=== PATIENT | female | born 1985 | race Caucasian/White ===

== ENCOUNTER → 2017-03-26 | Outpatient (CLI) | payer BC ==
[2017-03-26 12:52] LABS: Glucose 84 mg/dL (74-99); Non-African American GFR(MDRD) >60 (>60 ml/min/1.73 sqM)
[2017-03-26 13:07] LABS: CH 31.2; CHCM 34.1; HDW 2.16; HGB 12.7 gm/dL (11.4-16.0); MCH 30.5 pg (25.0-35.0); MCHC 33.3 g/dL (31.0-37.0); MCV 91.7 fL (80.0-100.0); Mean Platelet Volume 6.7; RBC 4.15 m/uL (3.80-5.40); RDW 13.7 % (11.5-15.5); WBC 10.1 k/uL (3.8-10.6)
[2017-03-26 13:23] LABS: Hepatitis B Surface Ag Index 0.05
[2017-03-26 19:47] LABS: Treponemal Ab Non-Reactive (Non-Reactive)
== END | disposition home or self-care (01) ==
LOC: LABWHC1 12:03
PROVIDERS: ATTEND Obstetrics & Gynecology
DX: Z34.01 Encounter for supervision of normal first pregnancy, first trimester (principal); Z3A.00 Weeks of gestation of pregnancy not specified
CPT/HCPCS: 36415; 82565; 82947; 85027; 86762; 86780; 86850; 86900; 86901; 87340

== ENCOUNTER → 2017-05-24 | Outpatient (CLI) | payer BC ==
[2017-05-26 09:54] LABS: Alpha Fetoprotein 47.8 ng/mL; B-HCG (M.O.M.) 1.96; Gestational Age (days) 4; Human Chorionic Gonadotropin 53.1 IU/mL; Inhibin A (M.O.M.) 1.44; Interpretation SeeBelow; Maternal Age at EDD (Yrs) 30; Smoker No; Unconjugated Estriol (M.O.M.) 0.77
== END | disposition home or self-care (01) ==
LOC: LABWHC1 10:13
PROVIDERS: ATTEND Obstetrics & Gynecology
DX: Z34.02 Encounter for supervision of normal first pregnancy, second trimester (principal); Z3A.00 Weeks of gestation of pregnancy not specified
CPT/HCPCS: 36415; 82105; 82677; 84702; 86336

== ENCOUNTER 2017-10-25 07:05 | Inpatient (IN) | payer BC ==
[2017-10-25] MEDS ORDERED: OXYTOCIN 10 UNIT/ML 1 ML VIAL IM PRN (09:08)
[2017-10-25] MEDS ORDERED: LIDOCAINE 1% (PF) 10 MG/ML (30 ML SDV) SQ PRN (09:08)
[2017-10-25] MEDS ORDERED: CARBOPROST TROMETHAMINE 250 MCG/ML 1 ML AMP IM PRN (09:08)
[2017-10-25] MEDS ORDERED: METHYLERGONOVINE 0.2 MG/ML 1 ML AMP IM PRN (09:08)
[2017-10-25] MEDS ORDERED: TERBUTALINE 1 MG/ML VIAL SQ PRN (09:08)
[2017-10-25] MEDS ORDERED: OXYTOCIN 20 UNITS/1000 ML NS 1,000 ML IV SCH (09:15)
[2017-10-25 09:30] LABS: Basophils % (A) 0 %; Eosinophils # (A) 0.1 k/uL (0-0.7); Eosinophils % (A) 1 %; HGB 12.7 gm/dL (11.4-16.0); Lymphocytes # (A) 1.3 k/uL (1.0-4.8); Lymphocytes % (A) 17 %; MCH 30.5 pg (25.0-35.0); MCHC 34.4 g/dL (31.0-37.0); MCV 88.8 fL (80.0-100.0); Mean Platelet Volume 8.7; Monocytes # (A) 0.4 k/uL (0-1.0); Monocytes % (A) 5 %; Neutrophils # (A) 6.1 k/uL (1.3-7.7); Neutrophils % (A) 76 %; Platelet Count 141 k/uL (150-450); RBC 4.17 m/uL (3.80-5.40); RDW 13.6 % (11.5-15.5); WBC 8.1 k/uL (3.8-10.6)
[2017-10-25 09:31] VITALS: BMI 25.1
[2017-10-25] MEDS: LACTATED RINGERS 1,000 ML IV SCH ×3 (09:39→17:33)
[2017-10-25] MEDS ORDERED: BUTORPHANOL 1 MG/ML 1 ML VIAL IV PRN (16:49)
[2017-10-25] MEDS ORDERED: BUPIVACAINE (PF) 0.25% 30 ML VIAL ONE (17:16)
[2017-10-25] MEDS ORDERED: SODIUM CHLORIDE 0.9% 100 ML BAG ONE (17:16)
[2017-10-25] MEDS ORDERED: fentaNYL (PF) 50 MCG/ML 5 ML AMP ONE (17:16)
[2017-10-25] MEDS ORDERED: BUPIVACAINE (PF) 0.25% 25 ML, fentaNYL (PF) 200 MCG in SODIUM CHLORIDE 0.9% 71 ML EPIDURAL ONE (17:39)
[2017-10-26] MEDS ORDERED: SIMETHICONE 80 MG CHEWABLE PO PRN (01:13)
[2017-10-26] MEDS ORDERED: BENZOCAINE/MENTHOL SPRAY 1 GM/SPRAY AEROSOL TOPICAL PRN (01:13)
[2017-10-26] MEDS ORDERED: HYDROCORTISONE 2.5% RECTAL CREAM 30 GM TUBE RECTAL PRN (01:13)
[2017-10-26] MEDS ORDERED: ZOLPIDEM 5 MG TAB PO PRN (01:13)
[2017-10-26] MEDS ORDERED: diphenhydrAMINE 25 MG CAP PO PRN (01:13)
[2017-10-26] MEDS ORDERED: LANOLIN CREAM 5 GM TUBE TOPICAL PRN (01:13)
[2017-10-26] MEDS ORDERED: diphenhydrAMINE 50 MG CAP PO PRN (01:13)
[2017-10-26] MEDS ORDERED: diphenhydrAMINE 50 MG/ML 1 ML VIAL IVP PRN ×2 (01:13)
[2017-10-26] MEDS ORDERED: WITCH HAZEL 1 EACH MED..PAD TOPICAL PRN (01:13)
[2017-10-26] MEDS ORDERED: HYDROcodone/APAP 5-325MG 1 EACH TAB PO PRN ×2 (01:14)
--- NOTE | 2017-10-26 01:18 | P.HPOB ---
History of Present Illness H&P Date: 10/26/17 Chief Complaint: Intrauterine at 40 and 4: Active labor: Possible spontaneous rupt Patient is a 32-year-old who was a patient of infertility to help her get . Her course generally speaking was unremarkable although she did have one elevated blood pressure approximately 2 weeks ago labs and follow-up blood pressures have been normal. NSTs and last couple days have been reactive. This morning at approximately 5:00 she began having increase in pain and contractions was sent into labor and delivery where there was a possibility of spontaneous rupture membranes. She made minimal cervical change but as she was past her due date decision to keep her and allow her to labor with artificial rupture membranes was done with clear fluid noted at that time. heart tones in the 130s to 140s and were reactive. She is myra approximately every 6-8 minutes. Pitocin augmentation of labor was planned at that point. Pertinent labs did include A+ blood type Rh and it was negative, rubella immune, hepatitis B surface antigen and RPR as well as quad screening were negative. GBS was negative. Past Medical History Past Medical History: No Reported History History of Any Multi-Drug Resistant Organisms: None Reported Past Surgical History: Ablation Additional Past Surgical History / Comment(s): uterine ablation for endometriosis 07/2016 Past Anesthesia/Blood Transfusion Reactions: No Reported Reaction Past Psychological History: No Psychological Hx Reported Smoking Status: Never smoker Past Drug Use History: None Reported - Past Family History Mother Family Medical History: Hypertension Father Family Medical History: Hypertension Medications and Allergies Home Medications Medication Instructions Recorded Confirmed Type Pnv No.95/Ferrous Fum/Folic AC 1 tab PO DAILY 10/25/17 10/25/17 History [ Multivitamin Tablet] Allergies Allergy/AdvReac Type Severity Reaction Status Date / Time amoxicillin Allergy Rash/Hives Verified 10/25/17 07:23 Exam Osteopathic Statement: *. No significant issues noted on an osteopathic structural exam other than those noted in the History and Physical/Consult. - Vital Signs Vital signs: Vital Signs Temp Pulse Resp BP 10/25/17 09:21 97.9 F 68 16 137/85 10/25/17 08:52 97.9 F 79 16 127/86 Intake and Output 10/25/17 10/25/17 10/26/17 14:59 22:59 06:59 Intake Total 1000 45 Output Total 350 Balance 1000 -350 45 Intake: IV 1000 Lactated Ringers 1,000 ml 1000 @ 125 mls/hr IV .Q8H EZRA Rx#:[id number] Intake, IV Titration 45 Amount Oxytocin 20 Units/1000 ml 45 Ns 1,000 ml @ 1 MILLIUNIT/MIN 3 mls/hr IV .Q24H EZRA Rx#:[id number] Output: Urine 350 Other: Weight 60.328 kg - OBG Physical Exam Breast: both: normal (no masses) Abdomen: bowel sounds normal, no diffuse tenderness, no bruit present, no guarding noted, no hepatomegaly, no splenomegaly, no mass Vulva: both: normal Vagina: normal moisture, no discharge Cervix: no lesion, no discharge Uterus: normal size, normal contour Adnexa: both: normal Anus/Rectum: normal perianal skin, no rectal mass, no hemorrhoids, heme negative Results Result Diagrams: 10/25/17 09:18 Abnormal Lab Results - Last 24 Hours (Table) 10/25/17 Range/Units 09:18 Plt Count 141 L (150-450) k/uL
--- NOTE | 2017-10-26 01:25 | P.PROBDLV ---
Vaginal Delivery Note - . Vaginal Delivery Note: Patient progressed to complete and pushing with a vacuum-assisted vaginal delivery of a viable female over a third-degree perineal laceration. It is noted that during the process the patient pushed for almost 2-1/2 hours and had maternal exhaustion and with pushes over approximately the last half hour heart rate was decelerating from baseline of 155 down to 80s with rapid return to baseline. A discussion was held with the and patient including the involved risks and benefits of a vacuum-assisted delivery including lacerations of the scalp as well as subgaleal or subdural hematomas. The other discussion was if we were unable to do this and assist in the delivery the next step would be to move forward with the section. We did briefly discuss a section rather than a vacuum-assisted delivery as an alternative, but with the baby being essentially on the perineum when she pushed risks for likely both mother and baby were greatly increased with a move to a section trying to push the baby all the way back up into the uterus and out for a . Vacuum was applied and it was pumped up to approximately 45 mmHg. During the first 2 attempts at vacuum assisted delivery of this year old between the baby and the vacuum did not hold there was no pop off but it did release due to blood underneath the vacuum and therefore no real attempt could be made to assist in her delivery. We were able to on the third attempt get a good seal pump it again to 45 mmHg and with one assist were able to bring the head up and out of the vagina over a third-degree perineal laceration the vacuum was then released and nuchal cord 2 was noted. The nuchal cord 2 was very tight initially I tried to deliver the baby through the nuchal cord but I was unable to get the shoulders free from the nuchal cord due to how tight it was an attempt to deliver the nuchal cord over the baby's head was also attempted but also would not go all the way around therefore the umbilical cord was doubly clamped and cut. Baby was immediately delivered following this and mouth nares were bulb suctioned and baby was placed on mother 's abdomen where the umbilical cord was let rapidly clamped and cut and nursery personnel and special care nursery personnel as well as anesthesia were present for assuming care of the baby. It was noted during the latter process of labor that she might have meconium and there was very thick meconium noted at the time of delivery but only a scant amount had been seen prior to that. scores and weight are both pending at this time. Placenta was then delivered intact and Pitocin was added to the IV. Inspection of perineum revealed a third -degree laceration inspection of the rectum revealed no capsular involvement. The deep layer of the laceration was repaired with 3-0 Vicryl in interrupted fashion with 3 interrupted stick sutures. Good anal weight was noted bilaterally. During the repair process there was uterine atony noted and the patient had some hemorrhage was a loss of approximately 802,000 mL of blood. Methergine was immediately ordered and provided and resolution of the atony was rapidly effected. The remaining repair of the laceration was done in usual fashion as an episiotomy and one interrupted suture was placed just above the rectum to bring the skin together in that area. Another rectal exam was performed with good integrity noted over the rectum.
[2017-10-26] MEDS: IBUPROFEN 600 MG TAB PO PRN ×4 (01:41→20:09)
[2017-10-26] MEDS: ACETAMINOPHEN TAB 325 MG TAB PO PRN ×2 (02:41→11:08)
[2017-10-26] MEDS: SENNOSIDES-DOCUSATE SODIUM 1 EACH TAB PO SCH ×2 (07:33→20:08)
--- NOTE | 2017-10-26 10:19 | P.PNOBGVD ---
Subjective - Subjective Principal diagnosis: day 0 Interval history: Overall cierra erwin appears to be doing well. She feels better this morning she did last night. Her vital signs are stable and she is afebrile. A CBC is pending. She does report she did have some tingling in her fingers and was little lightheaded getting up and down last night following the delivery, she did have hemorrhage so I'm interested to see what her CBC returns this morning. She is able to get down now and overall does look good. Heart regular, lungs clear, extremities without pain. 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 Assessment day 0. Plan continue current care Patient reports: Reports appetite normal, Reports voiding normally, Reports pain well controlled, Reports ambulating normally [place]: in NICU Objective - Latest Vital Signs Latest vital signs: Vital Signs Temp Pulse Resp BP 10/26/17 07:53 97.6 F 70 16 119/71 10/26/17 04:00 97.6 F 68 16 140/88 10/26/17 03:06 98.1 F 68 16 127/72 10/26/17 02:36 74 16 118/70 10/26/17 02:06 69 16 117/55 10/26/17 01:51 75 16 120/65 10/26/17 01:36 76 16 124/74 10/26/17 01:21 71 16 119/74 10/26/17 00:52 97.0 F L 103 H 16 116/60 Intake and Output 10/25/17 10/26/17 10/26/17 22:59 06:59 14:59 Intake Total 45 Output Total 350 Balance -350 45 Intake: Intake, IV Titration 45 Amount Oxytocin 20 Units/1000 ml 45 Ns 1,000 ml @ 1 MILLIUNIT/MIN 3 mls/hr IV .Q24H EZRA Rx#:[id number] Output: Urine 350 Other: # Voids 1 - Exam Lungs: bilateral: normal Chest: Normal S1, Normal S2 Extremities: Present: normal Abdomen: Present: normal appearance, soft Uterus: Present: normal, firm
[2017-10-26 10:53] LABS: Basophils % (A) 0 %; Eosinophils % (A) 0 %; Lymphocytes # (A) 1.3 k/uL (1.0-4.8); Lymphocytes % (A) 8 %; MCHC 35.2 g/dL (31.0-37.0); MCV 87.9 fL (80.0-100.0); Monocytes # (A) 0.4 k/uL (0-1.0); Monocytes % (A) 3 %; Neutrophils # (A) 13.1 k/uL (1.3-7.7); Neutrophils % (A) 88 %; Platelet Count 117 k/uL (150-450); RBC 2.96 m/uL (3.80-5.40); RDW 13.7 % (11.5-15.5); WBC 14.9 k/uL (3.8-10.6)
[2017-10-26 11:02] LABS: HGB 9.2 gm/dL (11.4-16.0)
[2017-10-27] MEDS: IBUPROFEN 600 MG TAB PO PRN ×3 (06:41→19:51)
--- NOTE | 2017-10-27 08:02 | P.PNOBGVD ---
Subjective - Subjective Principal diagnosis: Status post vaginal delivery day #1 Interval history: Patient is doing okay. She is sore on her bottom area. She is alternating her pain medications with some success. Baby is now in the room with her and is feeding okay. Lochia is decreasing. Patient reports: Reports appetite normal, Reports voiding normally, Reports pain well controlled, Reports ambulating normally [place]: doing well, bottle feeding Objective - Latest Vital Signs Latest vital signs: Vital Signs Temp Pulse Resp BP 10/27/17 04:00 98.0 F 69 16 107/68 10/27/17 00:00 98.4 F 74 18 108/65 10/26/17 20:00 98.4 F 74 18 10/26/17 16:00 98.5 F 76 16 102/80 10/26/17 12:00 98.9 F 82 16 124/65 Intake and Output 10/26/17 10/27/17 10/27/17 22:59 06:59 14:59 Other: # Voids 1 3 # Bowel Movements 1 - Exam Extremities: Present: normal. Absent: tenderness, edema Abdomen: Present: normal appearance, soft. Absent: tenderness Uterus: Present: normal, firm. Absent: tenderness - Labs Labs: Abnormal Lab Results - Last 24 Hours (Table) 10/26/17 Range/Units 10:32 WBC 14.9 H (3.8-10.6) k/uL RBC 2.96 L (3.80-5.40) m/uL Hgb 9.2 L D (11.4-16.0) gm/dL Hct 26.0 L (34.0-46.0) % Plt Count 117 L (150-450) k/uL Neutrophils # 13.1 H (1.3-7.7) k/uL Assessment and Plan Assessment: Status post vaginal delivery day #1 Plan: Continue with care today. Anticipate discharge home tomorrow.
[2017-10-27] MEDS: SENNOSIDES-DOCUSATE SODIUM 1 EACH TAB PO SCH ×2 (08:48→20:23)
[2017-10-28] MEDS: IBUPROFEN 600 MG TAB PO PRN ×2 (00:29→07:52)
[2017-10-28] MEDS: SENNOSIDES-DOCUSATE SODIUM 1 EACH TAB PO SCH (07:53)
[2017-10-28 08:06] VITALS: BP 123/77; PULSE 105; RESP 16; TEMP 99
--- NOTE | 2017-10-28 09:01 | P.DS ---
Providers Date of admission: 10/25/17 08:56 Expected date of discharge: 10/28/17 Attending physician: Nacho Goss Primary care physician: Daniela Rivera [facility] Course: This is a 32-year-old female 1 para 0 at 40-4/7 weeks who presented with spontaneous rupture of membranes. She underwent oxytocin augmentation of labor and did have a vacuum-assisted vaginal delivery on 10/26/2017. She delivered a viable female with scores of 4 at 1 minute and 5 at 6 minutes and 8 at 10 minutes and infant weight of 7 lbs. 9 oz. Nuchal cord 2 was noted and thick meconium was also noted. Her course has been uncomplicated. She is breast-feeding. Lochia is decreasing. Pain is fairly well controlled with ibuprofen. Vital signs are stable. Abdomen is soft with fundus firm and nontender. Extremities show negative Homans. Impression is status post vaginal delivery day #2. Plan is to discharge home today. Routine instructions are given. She will be given a prescription for breast pump and ibuprofen. She is advised to call the office if she has any further questions or concerns prior to her appointment time. She is advised to follow up in the office in 6 weeks. Procedures: Oxytocin augmentation of labor Vacuum-assisted vaginal delivery of a viable female infant on 10/26/2017 Patient Condition at Discharge: Stable Plan - Discharge Summary New Discharge Prescriptions: New Ibuprofen [Motrin] 600 mg PO Q6HR PRN #60 tab PRN Reason: Mild Pain Or Fever >= 100.5 Continue Pnv No.95/Ferrous Fum/Folic AC [ Multivitamin Tablet] 1 tab PO DAILY Discharge Medication List Pnv No.95/Ferrous Fum/Folic AC [ Multivitamin Tablet] 1 tab PO DAILY [History] Ibuprofen [Motrin] 600 mg PO Q6HR PRN #60 tab 10/28/17 [Rx] Follow up Appointment(s)/Referral(s): Daniela Rivera DO [Primary Care Provider] - 6 Weeks Activity/Diet/Wound Care/Special Instructions: Instructions 1. Do not begin any exercise program for 3 weeks. 2. Do not resume sexual relations for 3 weeks or longer if uncomfortable. 3. You may take tub baths or showers at any time. 4. You may use tampons if desired after 3 weeks. 5. Keep the area of episiotomy (stitches) clean and dry. 6. If you are not nursing, wear a good fitting, supportive bra during the day and limit fluid intake for at least 1 week to prevent breast engorgement. 7. Call the office, [phone], within the next week to make appointment for your 6 week checkup if it has not already been made. 8. Report any of the following occurrences to the doctor promptly: a. Heavy, excessive bleeding b. Chills, fever c. Burning or frequency of urination d. Pain or redness and breasts if nursing e. Increasing pain or swelling in episiotomy (stitches). In addition to the above instructions, the following additional should be followed: 1. No heavy lifting or straining (exercising) until after 6 week checkup. 2. Keep abdominal incision clean and dry: You may wear a dressing if more comfortable. 3. Make office appointment for 10 days after going home or as instructed by her doctor. Discharge Disposition: HOME SELF-CARE
== END 2017-10-28 11:30 | disposition home or self-care (01) | DRG 774 ==
LOC: FBPOP 07:05 → 4FBP 08:56
PROVIDERS: ADMIT Obstetrics & Gynecology; ATTEND Obstetrics & Gynecology
PROC: 10D07Z6 Extraction of Products of Conception, Vacuum, Via Natural or Artificial Opening (ICD-10-PCS; principal; 2017-10-25)
PROC: 0DQR0ZZ Repair Anal Sphincter, Open Approach (ICD-10-PCS; 2017-10-25)
PROC: 00HU33Z Insertion of Infusion Device into Spinal Canal, Percutaneous Approach (ICD-10-PCS; 2017-10-25)
PROC: 3E0R3NZ Introduction of Analgesics, Hypnotics, Sedatives into Spinal Canal, Percutaneous Approach (ICD-10-PCS; 2017-10-25)
DX: O48.0 Post-term pregnancy (principal); O72.1 Other immediate postpartum hemorrhage; O70.20 Third degree perineal laceration during delivery, unspecified; N97.9 Female infertility, unspecified; O77.0 Labor and delivery complicated by meconium in amniotic fluid; O75.81 Maternal exhaustion complicating labor and delivery; O69.1XX0 Labor and delivery complicated by cord around neck, with compression, not applicable or unspecified; Z37.0 Single live birth; Z3A.40 40 weeks gestation of pregnancy; Z87.42 Personal history of other diseases of the female genital tract; Z82.49 Family history of ischemic heart disease and other diseases of the circulatory system; Z88.1 Allergy status to other antibiotic agents
CPT/HCPCS: 59025; 84112; 85025; 88307; 99213

== ENCOUNTER 2017-11-03 11:38 | Emergency (ER) | payer BC ==
[2017-11-03] MEDS ORDERED: SODIUM CHLORIDE 0.9% 1,000 ML IV STA ×3 (12:07→13:38)
--- NOTE | 2017-11-03 12:12 | ED ---
General Adult HPI - General Chief complaint: Vaginal Bleeding Stated complaint: Vaginal Bleeding 8 Days Post Pardum Time Seen by Provider: 11/03/17 11:56 Source: patient, RN notes reviewed Mode of arrival: ambulatory Limitations: no limitations - History of Present Illness Initial comments: Patient 32-year-old female status post vaginal delivery 8 days, presented to the emergency room today with a chief complaint of increased vaginal bleeding. Patient states that she has been changing pads approximately every hour. States symptoms became heavier bleeding yesterday. States the bright color. Does admit that when she is up moving around she feels somewhat dizzy at times short of breath. Patient states that when she is laying down she feels better. Patient does admit some lower abdominal vaginal pain. She states that she did have a tear and placed some stitches. She states that she called her OB/ HEALTH ANALYTICS CONSULTANT advised to come here to the emergency room for evaluation also be checked for influenza as she states she had some body aches yesterday. She states no fevers. Patient denies any other complaints at this time. Patient denies any recent fever, chills, shortness of breath, chest pain, back pain, vomiting, numbness or tingling, dysuria or hematuria, constipation or diarrhea, headaches or visual changes, or any other complaints. - Related Data Home Medications Medication Instructions Recorded Confirmed Pnv No.95/Ferrous Fum/Folic AC 1 tab PO HS 10/25/17 11/03/17 [ Multivitamin Tablet] Docusate [Colace] 100 mg PO ONCE PRN 11/03/17 11/03/17 Previous Rx's Medication Instructions Recorded Ibuprofen [Motrin] 600 mg PO Q6HR PRN #60 tab 10/28/17 Cephalexin [Keflex] 500 mg PO Q12HR 7 Days cap 11/03/17 Allergies Allergy/AdvReac Type Severity Reaction Status Date / Time amoxicillin Allergy Rash/Hives Verified 11/03/17 11:51 Review of Systems ROS Statement: Those systems with pertinent positive or pertinent negative responses have been documented in the HPI. ROS Other: All systems not noted in ROS Statement are negative. Past Medical History Past Medical History: No Reported History History of Any Multi-Drug Resistant Organisms: None Reported Past Surgical History: Ablation Additional Past Surgical History / Comment(s): uterine ablation for endometriosis 07/2016 Past Anesthesia/Blood Transfusion Reactions: No Reported Reaction Past Psychological History: No Psychological Hx Reported Smoking Status: Never smoker Past Drug Use History: None Reported - Past Family History Mother Family Medical History: Hypertension Father Family Medical History: Hypertension General Exam - General Exam Comments Initial Comments: General: The patient is awake and alert, in no distress, and does not appear acutely ill. Eye: Pupils are equal, round and reactive to light, extra-ocular movements are intact. No nystagmus. There is normal conjunctiva bilaterally. No signs of icterus. Ears, nose, mouth and throat: There are moist mucous membranes and no oral lesions. Neck: The neck is supple, there is no tenderness or JVD. Cardiovascular: There is a regular rate and rhythm. No murmur, rub or gallop is appreciated. Respiratory: Lungs are clear to auscultation, respirations are non-labored, breath sounds are equal. No wheezes, stridor, rales, or rhonchi. Gastrointestinal: Soft, non-distended, non-tender abdomen without masses or organomegaly noted. There is no rebound or guarding present. No CVA tenderness. Musculoskeletal: Normal ROM, no tenderness. Strength 5/5. Sensation intact. Pulses equal bilaterally 2+. Neurological: A&O x 3. CN II-XII intact, There are no obvious motor or sensory deficits. Coordination appears grossly intact. Speech is normal. Skin: Skin is warm and dry and no rashes or lesions are noted. Psychiatric: Cooperative, appropriate mood & affect, normal judgment. Limitations: no limitations Course Vital Signs 11/03/17 11/03/17 11/03/17 11:39 12:30 14:00 Temperature 98.1 F Pulse Rate 137 H 104 H 107 H Respiratory 20 17 18 Rate Blood Pressure 152/79 118/70 116/79 O2 Sat by Pulse 98 100 99 Oximetry 11/03/17 11/03/17 11/03/17 15:00 15:26 15:27 Temperature Pulse Rate 90 103 H 103 H Respiratory 18 Rate Blood Pressure 111/68 114/70 126/86 O2 Sat by Pulse 100 100 100 Oximetry Medical Decision Making - Medical Decision Making Case discussed in detail with attending physician Dr. Nazario. Patient reexamined at this time shows no signs of distress resting comfortably. Patient was reviewed with thousand white count. His hemoglobin stable at 9.8 which is improved from previous hemoglobin 1 week ago. Patient's initial urinalysis showed possible infection. Straight cath was performed showing no sign of infection. Patient's ultrasound shows 1. Fluid reason here within the uterine cavity which is thickened up to 1.7 cm. 2. Additional problem of fluid in the prestudy to the cervical canal by 5.7 cm. Case was discussed with attending physician Dr. Nazario who did discuss the case with patient's own MEDICINE TECHNOLOGIST Dr. Rivera states feels that this ultrasound is normal for this time. Patient feeling well on repeat exam. Has been ambulated here in the emergency room heart rate of 103 denies any lightheadedness or dizziness. States feels much better at this time after IV fluids. Was given over 2 L of fluids through the IV. Dr. Rivera recommends starting patient on antibiotics cover for infection. Patient will be started on Keflex. Advised patient following up next 1-2 days return if any symptoms increase or worsen. - Lab Data Result diagrams: 11/03/17 11:55 11/03/17 11:55 Lab Results 11/03/17 11/03/17 11/03/17 Range/Units 11:55 11:55 11:55 WBC 21.3 H (3.8-10.6) k/uL RBC 3.26 L (3.80-5.40) m/uL Hgb 9.8 L (11.4-16.0) gm/dL Hct 29.7 L (34.0-46.0) % MCV 91.1 (80.0-100.0) fL MCH 30.1 (25.0-35.0) pg MCHC 33.0 (31.0-37.0) g/dL RDW 14.7 (11.5-15.5) % Plt Count 372 D (150-450) k/uL Neutrophils % 90 % Lymphocytes % 5 % Monocytes % 4 % Eosinophils % 0 % Basophils % 0 % Neutrophils # 19.2 H (1.3-7.7) k/uL Lymphocytes # 1.1 (1.0-4.8) k/uL Monocytes # 0.7 (0-1.0) k/uL Eosinophils # 0.0 (0-0.7) k/uL Basophils # 0.0 (0-0.2) k/uL PT 9.4 (9.0-12.0) sec INR 0.9 (<1.2) APTT 22.6 (22.0-30.0) sec Sodium 136 L (137-145) mmol/L Potassium 3.8 (3.5-5.1) mmol/L Chloride 104 (98-107) mmol/L Carbon Dioxide 19 L (22-30) mmol/L Anion Gap 13 mmol/L BUN 19 H (7-17) mg/dL Creatinine 0.56 (0.52-1.04) mg/dL Est GFR (CKD-EPI)AfAm >90 (>60 ml/min/1.73 sqM) Est GFR (CKD-EPI)NonAf >90 (>60 ml/min/1.73 sqM) Glucose 102 H (74-99) mg/dL Calcium 8.8 (8.4-10.2) mg/dL Total Bilirubin 0.3 (0.2-1.3) mg/dL AST 39 H (14-36) U/L ALT 105 H (9-52) U/L Alkaline Phosphatase 127 H (38-126) U/L Total Protein 6.2 L (6.3-8.2) g/dL Albumin 3.6 (3.5-5.0) g/dL Urine Color Urine Appearance (Clear) Urine pH (5.0-8.0) Ur Specific [place] (1.001-1.035) Urine Protein (Negative) Urine Glucose (UA) (Negative) Urine Ketones (Negative) Urine Blood (Negative) Urine Nitrite (Negative) Urine Bilirubin (Negative) Urine Urobilinogen (<2.0) mg/dL Ur Leukocyte Esterase (Negative) Urine RBC (0-5) /hpf Urine WBC (0-5) /hpf Ur Squamous Epith Cells (0-4) /hpf Urine Bacteria (None) /hpf Urine Mucus (None) /hpf Influenza Type A RNA (Not Detectd) Influenza Type B (PCR) (Not Detectd) 11/03/17 11/03/17 11/03/17 Range/Units 12:15 12:35 14:03 WBC (3.8-10.6) k/uL RBC (3.80-5.40) m/uL Hgb (11.4-16.0) gm/dL Hct (34.0-46.0) % MCV (80.0-100.0) fL MCH (25.0-35.0) pg MCHC (31.0-37.0) g/dL RDW (11.5-15.5) % Plt Count (150-450) k/uL Neutrophils % % Lymphocytes % % Monocytes % % Eosinophils % % Basophils % % Neutrophils # (1.3-7.7) k/uL Lymphocytes # (1.0-4.8) k/uL Monocytes # (0-1.0) k/uL Eosinophils # (0-0.7) k/uL Basophils # (0-0.2) k/uL PT (9.0-12.0) sec INR (<1.2) APTT (22.0-30.0) sec Sodium (137-145) mmol/L Potassium (3.5-5.1) mmol/L Chloride (98-107) mmol/L Carbon Dioxide (22-30) mmol/L Anion Gap mmol/L BUN (7-17) mg/dL Creatinine (0.52-1.04) mg/dL Est GFR (CKD-EPI)AfAm (>60 ml/min/1.73 sqM) Est GFR (CKD-EPI)NonAf (>60 ml/min/1.73 sqM) Glucose (74-99) mg/dL Calcium (8.4-10.2) mg/dL Total Bilirubin (0.2-1.3) mg/dL AST (14-36) U/L ALT (9-52) U/L Alkaline Phosphatase (38-126) U/L Total Protein (6.3-8.2) g/dL Albumin (3.5-5.0) g/dL Urine Color Yellow Light Yellow Urine Appearance Cloudy H Clear (Clear) Urine pH 6.0 5.0 (5.0-8.0) Ur Specific [place] 1.022 1.006 (1.001-1.035) Urine Protein 1+ H Negative (Negative) Urine Glucose (UA) Negative Negative (Negative) Urine Ketones Negative Trace H (Negative) Urine Blood Large H Trace H (Negative) Urine Nitrite Negative Negative (Negative) Urine Bilirubin Negative Negative (Negative) Urine Urobilinogen <2.0 <2.0 (<2.0) mg/dL Ur Leukocyte Esterase Large H Negative (Negative) Urine RBC >182 H <1 (0-5) /hpf Urine WBC >182 H <1 (0-5) /hpf Ur Squamous Epith Cells 1 (0-4) /hpf Urine Bacteria Rare H (None) /hpf Urine Mucus Few H Rare H (None) /hpf Influenza Type A RNA Not Detected (Not Detectd) Influenza Type B (PCR) Not Detected (Not Detectd) Disposition Clinical Impression: bleeding, Abdominal pain Disposition: HOME SELF-CARE Instructions: Bleeding (ED) Additional Instructions: Please follow-up with MEDICINE TECHNOLOGIST over the next 1-2 days. Please use antibiotic as prescribed but is been sent to your pharmacy. Please return here to the emergency room for any symptoms increase or worsen or for any other concerns. Prescriptions: Cephalexin [Keflex] 500 mg PO Q12HR 7 Days cap Is patient prescribed a controlled substance at d/c from ED?: No Referrals: Dilip Castro MD [Primary Care Provider] - 1-2 days Daniela Rivera DO [Doctor of Osteopathic Medicine] - 1-2 days Time of Disposition: 15:48
[2017-11-03 12:23] LABS: Basophils % (A) 0 %; Eosinophils % (A) 0 %; HCT 29.7 % (34.0-46.0); HGB 9.8 gm/dL (11.4-16.0); Lymphocytes # (A) 1.1 k/uL (1.0-4.8); Lymphocytes % (A) 5 %; MCH 30.1 pg (25.0-35.0); MCV 91.1 fL (80.0-100.0); Mean Platelet Volume 6.6; Monocytes # (A) 0.7 k/uL (0-1.0); Monocytes % (A) 4 %; Neutrophils # (A) 19.2 k/uL (1.3-7.7); Neutrophils % (A) 90 %; RBC 3.26 m/uL (3.80-5.40); RDW 14.7 % (11.5-15.5); WBC 21.3 k/uL (3.8-10.6)
[2017-11-03 12:27] LABS: INR 0.9 (<1.2); Partial Thromboplastin Time 22.6 sec (22.0-30.0); Prothrombin Time 9.4 sec (9.0-12.0)
[2017-11-03 12:28] LABS: Platelet Count 372 k/uL (150-450)
[2017-11-03 12:33] LABS: ALT 105 U/L (9-52); AST 39 U/L (14-36); Albumin 3.6 g/dL (3.5-5.0); Alkaline Phosphatase 127 U/L (38-126); Anion Gap 13 mmol/L; Blood Urea Nitrogen 19 mg/dL (7-17); Calcium 8.8 mg/dL (8.4-10.2); Carbon Dioxide 19 mmol/L (22-30); Chloride 104 mmol/L (98-107); Glucose 102 mg/dL (74-99); Potassium 3.8 mmol/L (3.5-5.1); Sodium 136 mmol/L (137-145); Total Bilirubin 0.3 mg/dL (0.2-1.3); Total Protein 6.2 g/dL (6.3-8.2)
[2017-11-03 12:48] LABS: Appearance,Urine Cloudy (Clear); Bilirubin,Urine Negative (Negative); Blood,Urine Large (Negative); Color,Urine Yellow; Glucose,Urine (UA) Negative (Negative); Ketones,Urine Negative (Negative); Leukocyte Esterase,Urine Large (Negative); Mucus,Urine Few /hpf; Nitrite,Urine Negative (Negative); Protein,Urine 1+ (Negative); RBC,Urine >182 /hpf (0-5); Specific Gravity,Urine 1.022 (1.001-1.035); Squamous Epithelial Cell,Urine 1 /hpf (0-4); Urobilinogen,Urine <2.0 mg/dL (<2.0); WBC,Urine >182 /hpf (0-5)
--- NOTE | 2017-11-03 13:32 | US ---
EXAMINATION TYPE: US pelvic complete DATE OF EXAM: 11/03/2017 COMPARISON: NONE CLINICAL HISTORY: 32-year-old female with pain. 8 days post , bleeding has increased today and lightheaded with nausea, no fever, h/o endometriosis, 6 attempts at IUI and 1 IVF TECHNIQUE: TA. Did not TV due to status and enlarged uterus Date of LMP: 10+months ago, IVF FINDINGS: EXAM MEASUREMENTS: Uterus: 15.5 x 9.8 x 5.0 cm Endometrial Stripe: 1.7 cm Right Ovary: 2.9 x 2.4 x 1.1 cm Left Ovary: 3.4 x 2.4 x 2.1 cm 1. Uterus: Anteverted. Enlarged appearance with heterogeneous fluid distending the cerv ical canal by 5.7 cm. 2. Endometrium: Heterogeneous debris and fluid with appearance of air along endometrial canal. 3. Right Ovary: wnl 4. Left Ovary: wnl 5. Bilateral Adnexa: wnl 6. Posterior cul-de-sac: wnl IMPRESSION: 1. Fluid and debris and air within the uterine cavity which is thickened up to 1.7 cm. Clinical corre lation recommended for the possibility of endometritis given the air. 2. Additional prominent fluid and debris distending the cervical canal by 5.7 cm.
--- NOTE | 2017-11-03 14:02 | XR ---
EXAMINATION TYPE: XR chest 2V DATE OF EXAM: 11/03/2017 COMPARISON: None HISTORY: 32-year-old female with shortness of breath, vaginal bleeding one week TECHNIQUE: PA and lateral views FINDINGS: The cardiomediastinal silhouette, aorta, and pulmonary vasculature are within normal limits. Lungs an d pleural spaces are clear. IMPRESSION: No acute cardiopulmonary process.
[2017-11-03] MEDS ORDERED: RX INFO: IV CONTRAST WAS GIVEN 1 EACH MISC MISCELLANE PRN (14:10)
[2017-11-03 14:20] VITALS: RESP 18
[2017-11-03 14:32] LABS: Appearance,Urine Clear (Clear); Bacteria,Urine Rare /hpf; Bilirubin,Urine Negative (Negative); Blood,Urine Trace (Negative); Color,Urine Light Yellow; Glucose,Urine (UA) Negative (Negative); Ketones,Urine Trace (Negative); Leukocyte Esterase,Urine Negative (Negative); Mucus,Urine Rare /hpf; Nitrite,Urine Negative (Negative); Protein,Urine Negative (Negative); RBC,Urine <1 /hpf (0-5); Specific Gravity,Urine 1.006 (1.001-1.035); Urobilinogen,Urine <2.0 mg/dL (<2.0); WBC,Urine <1 /hpf (0-5)
--- NOTE | 2017-11-03 15:13 | CT ---
EXAMINATION TYPE: CT angio chest DATE OF EXAM: 11/03/2017 COMPARISON: Radiograph same day HISTORY: 32-year-old female with shortness of breath, Vaginal bleeding and chest pain 8 days post par ulisses. TECHNIQUE: Contiguous axial scanning of the chest performed with IV Contrast, patient injected with 6 7 mL of Isovue 370. Coronal/sagittal MIP reconstructions performed. CT DLP: 140.8 mGycm Automated exposure control for dose reduction was used. FINDINGS: The heart is normal size without pericardial effusion. Aorta is normal caliber with conventional arterial branch anatomy. There is satisfactory opacificatio n of the pulmonary arterial system without evidence for pulmonary embolus. No thoracic lymphadenopathy. Evaluation of the lungs shows no consolidation or pleural effusion. Visualized upper abdomen shows no gross abnormality. Bones: No osseous destructive process. IMPRESSION: 1. NO EVIDENCE FOR PULMONARY EMBOLUS. 2. NO ACUTE PULMONARY PROCESS.
[2017-11-03 15:27] VITALS: PULSE 103
[2017-11-03 15:28] VITALS: BP 126/86
[2017-11-03 16:12] VITALS: TEMP 99
== END 2017-11-03 16:11 | disposition home or self-care (01) ==
LOC: EC 11:38
DX: O72.1 Other immediate postpartum hemorrhage (principal); O99.89 Other specified diseases and conditions complicating pregnancy, childbirth and the puerperium; R10.2 Pelvic and perineal pain; R06.02 Shortness of breath; Z88.0 Allergy status to penicillin; Z79.899 Other long term (current) drug therapy
CPT/HCPCS: 36415; 88305; 80053; 85025; 85610; 85730; 81001; 87502; 71046; 76856; 71275; 99284; 96360; 96361 ×2; Q9967

== ENCOUNTER → 2018-08-15 | Outpatient (CLI) | payer BC ==
[2018-08-15 08:38] LABS: Basophils % (A) 1 %; Eosinophils # (A) 0.1 k/uL (0-0.7); Eosinophils % (A) 3 %; HGB 12.3 gm/dL (11.4-16.0); Lymphocytes # (A) 1.1 k/uL (1.0-4.8); Lymphocytes % (A) 31 %; MCHC 31.6 g/dL (31.0-37.0); MCV 91.7 fL (80.0-100.0); Mean Platelet Volume 6.8; Monocytes # (A) 0.2 k/uL (0-1.0); Monocytes % (A) 4 %; Neutrophils # (A) 2.1 k/uL (1.3-7.7); Neutrophils % (A) 60 %; Platelet Count 221 k/uL (150-450); RBC 4.25 m/uL (3.80-5.40); RDW 13.2 % (11.5-15.5); WBC 3.6 k/uL (3.8-10.6)
[2018-08-15 16:35] LABS: Iron Saturation 16.74 (12.00-45.00)
[2018-08-15 16:39] LABS: T4, Free (Free Thyroxine) 1.2 ng/dL (0.80-1.80)
[2018-08-15 16:44] LABS: Vitamin D 25 Hydroxy 29.9 ng/mL (30.0-100.0)
[2018-08-15 17:09] LABS: Albumin 4.6 g/dL (3.80-4.90); Albumin/Globulin Ratio 2.09 (1.60-3.17); Anion Gap 9.6 mmol/L (4.00-12.00); Calcium 9.1 mg/dL (8.7-10.3); Carbon Dioxide 23.4 mmol/L (21.6-31.8); Globulin 2.2 g/dL (1.6-3.3); Potassium 4.1 mmol/L (3.5-5.5); Total Bilirubin 0.6 mg/dL (0.3-1.2); Total Protein 6.8 g/dL (6.2-8.2)
== END | disposition home or self-care (01) ==
LOC: LABWHC1 08:10
PROVIDERS: ATTEND Nurse Practitioner Adult Health
DX: Z00.00 Encounter for general adult medical examination without abnormal findings (principal); D50.9 Iron deficiency anemia, unspecified; R53.83 Other fatigue
CPT/HCPCS: 36415; 80053; 80061; 82306; 82728; 83540; 83550; 84439; 84443; 85025

== ENCOUNTER → 2019-04-09 | Outpatient (CLI) | payer BC ==
[2019-04-09 17:10] LABS: HGB 12.9 gm/dL (11.4-16.0); MCHC 34.8 g/dL (31.0-37.0); MCV 86.1 fL (80.0-100.0); Mean Platelet Volume 5.4; Platelet Count 215 k/uL (150-450); RDW 12.4 % (11.5-15.5); WBC 7.5 k/uL (3.8-10.6)
[2019-04-10 10:34] LABS: African American GFR (CKD) 159.7 (60.0-200.0)
[2019-04-10 11:33] LABS: Hepatitis B Surface Antigen Non-Reactive (Non-Reactive)
[2019-04-12 14:01] LABS: HIV 1 AB Non-Reactive (Non-Reactive); HIV 2 AB Non-Reactive (Non-Reactive); HIV AB P24 Non-Reactive (Non-Reactive); HIV P24 AG Non-Reactive (Non-Reactive)
== END | disposition home or self-care (01) ==
LOC: LABWHC1 16:36
PROVIDERS: ATTEND Obstetrics & Gynecology
DX: Z34.82 Encounter for supervision of other normal pregnancy, second trimester (principal)
CPT/HCPCS: 36415; 82565; 82947; 85027; 86762; 86780; 86850; 86900; 86901; 87340; 87390

== ENCOUNTER → 2019-05-15 | Outpatient (CLI) | payer BC | END | disposition home or self-care (01) | LOC: LABWHC1 09:14 | PROVIDERS: ATTEND Obstetrics & Gynecology | DX: O30.009 Twin pregnancy, unspecified number of placenta and unspecified number of amniotic sacs, unspecified trimester (principal) | CPT/HCPCS: 36415 ==

== ENCOUNTER 2019-07-28 14:15 | Outpatient (CLI) | payer BC ==
[2019-07-28] MEDS: LACTATED RINGERS 1,000 ML IV SCH ×2 (15:39→16:37)
--- NOTE | 2019-07-28 16:53 | US ---
EXAMINATION TYPE: US OB >= 14 wk twins DATE OF EXAM: 07/28/2019 COMPARISON: NONE CLINICAL HISTORY: twins, leaking, bleeding, myra. vaginal bleeding, contractions, possible dee john fluid GESTATIONAL AGE / DATING Physician Established: (27 weeks/5 days) EDC: 10/22/19 Dates by LMP: unknown Dates by First Scan: no prior here Dates by Current Scan for Baby A: (27 weeks/4 days) EDC: 10/23/19 Dates by Current Scan for Baby B: (27 weeks/5 days) EDC: 10/22/19 GENERAL TWIN SURVEY TWIN A LOCATION in regards to maternal abd: closest to cervix TWIN B LOCATION in regards to maternal abd: superior to baby A MEMBRANE SEEN: yes CERVICAL LENGTH (transabdominal; norm > 3.0cm): 3.3 cm TWIN A: SURVEY/BIOMETRY PLACENTA: Anterior PREVIA: No previa JAGRUTI:? 10.8 cm?Normal LIE: Transvers with head maternal LT BPD: 7.0 cm 28 weeks / 1 days HC: 26.2 cm 28 weeks / 4 days AC: 23.4 cm 27 weeks / 5 days FL: 5.1 cm 27 weeks / 3 days ESTIMATED WEIGHT IN GRAMS: 1119 grams ESTIMATED WEIGHT IN LBS/OZS: 2 lbs. 7 oz. WEIGHT PERCENTAGE BASED ON ESTABLISHED DATES: 37.9% HC/AC: 1.12 Normal FL/AC: 21.89 Normal HEART RATE: 149 bpm RHYTHM: Normal TWIN B: SURVEY/BIOMETRY LIE: Transverse with head maternal LT BPD: 7.2 cm 28 weeks / 5 days HC: 26.1 cm 28 weeks / 3 days AC: 24.0 cm 28 weeks / 2 days FL: 5.2 cm 27 weeks / 4 days ESTIMATED WEIGHT IN GRAMS: 1169 grams ESTIMATED WEIGHT IN LBS/OZS: 2 lbs. 9 oz. WEIGHT PERCENTAGE BASED ON ESTABLISHED DATES: 51.3% HC/AC: 1.09 Normal FL/AC: 21.55 Normal HEART RATE: 145 bpm RHYTHM: Normal IMPRESSION: There is a borderline polyhydramnios for both fetuses.
[2019-07-28] MEDS ORDERED: INDOMETHACIN 25 MG CAP PO STA (17:43)
[2019-07-28] MEDS ORDERED: BETAMET ACET-BETAMETH SOD PHOS 6 MG/ML VIAL IM STA (17:44)
[2019-07-28] MEDS ORDERED: MAGNESIUM SULFATE GM 6 GM in SODIUM CHLORIDE 0.9% 100 ML IVPB ONE (18:00)
[2019-07-28] MEDS ORDERED: MAGNESIUM SULFATE-WATER PMX 20 GM in WATER FOR INJECTION 1 500ML.BAG IV SCH (18:00)
--- NOTE | 2019-07-28 18:03 | P.HPOB ---
History of Present Illness H&P Date: 07/28/19 Chief Complaint: Questionable spontaneous rupture of membranes This is a 34-year-old female 2 para 1 with an estimated date of confinement of 10/22/2019, estimated gestational age of 27-6/7 weeks with a twin gestation who presents to labor and delivery today for concerns for possible rupture of membranes. 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 When she got up she noticed that the chair was wet underneath her. She went to the bathroom and noted some fluid type discharge and some blood mixed with it. Upon arrival to triage, she was noted to be having contractions every 2-3 minutes. She was feeling some tightening but stated she thought it was just the baby moving. She has been feeling this off and on regularly for a while now. fibronectin and was unable to be performed due to blood. Amnisure was negative 2. Ultrasound was performed and both babies are transverse with the head to the maternal left side. Baby A has an estimated weight of 2 lbs. 7 oz. and JAGRUTI of 10.7 and baby B has an estimated weight of 2 lbs. 9 oz. and JAGRUTI of 12.7. Placentas are anterior. IV hydration was given and she has felt less contractions since the fluids. Review of Systems Constitutional: Denies chills, Denies fever Eyes: denies blurred vision, denies pain Ears, nose, mouth and throat: Denies headache, Denies sore throat Cardiovascular: Denies chest pain, Denies shortness of breath Respiratory: Denies cough Gastrointestinal: Reports abdominal pain (Mild tightening) Genitourinary: Reports abnormal vaginal bleeding, Reports , Reports vaginal discharge (Watery) Musculoskeletal: Denies myalgias Integumentary: Denies pruritus, Denies rash Neurological: Denies numbness, Denies weakness Psychiatric: Denies anxiety, Denies depression Past Medical History Past Medical History: No Reported History History of Any Multi-Drug Resistant Organisms: None Reported Additional Past Surgical History / Comment(s): Laparoscopy with ablation of endometriosis 07/2016 Past Anesthesia/Blood Transfusion Reactions: No Reported Reaction Past Psychological History: No Psychological Hx Reported Smoking Status: Never smoker Past Alcohol Use History: None Reported Past Drug Use History: None Reported - Past Family History Mother Family Medical History: Hypertension Father Family Medical History: Hypertension Medications and Allergies Home Medications Medication Instructions Recorded Confirmed Type Pnv No.95/Ferrous Fum/Folic AC 1 tab PO HS 10/25/17 07/28/19 History [ Multivitamin Tablet] Docusate [Colace] 100 mg PO ONCE PRN 11/03/17 07/28/19 History Aspirin [Children's Aspirin] 81 mg PO DAILY 07/28/19 07/28/19 History Allergies Allergy/AdvReac Type Severity Reaction Status Date / Time amoxicillin Allergy Rash/Hives Verified 07/28/19 14:30 Exam Osteopathic Statement: *. No significant issues noted on an osteopathic structural exam other than those noted in the History and Physical/Consult. Intake and Output 07/28/19 07/28/19 07/28/19 06:59 14:59 22:59 Other: Weight 58.513 kg Gen.: Well-developed well-nourished female in no acute distress HEENT: Within normal limits Heart: Regular rate and rhythm Lungs: Clear to auscultation bilaterally Abdomen: Speculum exam: Varicosities are noted underneath the bladder, bleeding is noted from this area. Cervical os is noted to have a small clot at the opening. No active bleeding is noted. Cervix: 1-1/2 cm/60%/-3 station. No gush of fluid is noted after removing my hand. I believe I can palpate membranes. heart tones: Reactive on both twins. Contractions: Every 2-5 minutes Extremities: Negative Homans Assessment and Plan (1) Twin gestation in second trimester Narrative/Plan: 27-6/7 weeks Current Visit: Yes Status: Acute Code(s): O30.002 - TWIN PREG, UNSP NUM PLCNTA & AMNIO SACS, SECOND TRIMESTER SNOMED Code(s): 71000286 (2) labor in second trimester Current Visit: Yes Status: Acute Code(s): O60.02 - LABOR WITHOUT DELIVERY, SECOND TRIMESTER SNOMED Code(s): 0013873 Plan: I spoke with Dr. Yu at [facility] in [place] and he agrees to accept the patient transfer. He has recommended starting Indocin 100 mg by mouth 1 and magnesium sulfate 6 g bolus. We will also give her her first dose of Celestone for lung maturity. Will transfer by ambulance. Patient is advised and agreeable to these recommendations.
== END 2019-07-28 19:10 | disposition home or self-care (01) ==
LOC: FBPOP 14:15
PROVIDERS: ATTEND Obstetrics & Gynecology
DX: O60.02 Preterm labor without delivery, second trimester (principal); O30.002 Twin pregnancy, unspecified number of placenta and unspecified number of amniotic sacs, second trimester; Z3A.27 27 weeks gestation of pregnancy
CPT/HCPCS: 99215; 96361; 96365; 96372; 84112; 82731; 76805; 76810; J0702; J3475 ×2

== ENCOUNTER 2019-09-10 15:18 | Outpatient (CLI) | payer BC | END 2019-09-10 16:29 | disposition home or self-care (01) | LOC: FBPOP 15:18 | PROVIDERS: ATTEND Obstetrics & Gynecology | DX: O30.009 Twin pregnancy, unspecified number of placenta and unspecified number of amniotic sacs, unspecified trimester (principal); Z3A.00 Weeks of gestation of pregnancy not specified | CPT/HCPCS: 59025; 99213 ==

== ENCOUNTER 2019-09-16 17:11 | Outpatient (CLI) | payer BC | END 2019-09-16 17:40 | disposition home or self-care (01) | LOC: FBPOP 17:11 | PROVIDERS: ATTEND Obstetrics & Gynecology | DX: O30.009 Twin pregnancy, unspecified number of placenta and unspecified number of amniotic sacs, unspecified trimester (principal); Z3A.00 Weeks of gestation of pregnancy not specified | CPT/HCPCS: 59025 ==

== ENCOUNTER 2019-09-21 13:55 | Outpatient (CLI) | payer BC ==
[2019-09-21 15:05] VITALS: BP 127/73; PULSE 83; RESP 16; TEMP 97.4
--- NOTE | 2019-10-04 15:37 | P.MSEPDOC ---
Presenting Problems - Arrival Data Date of Arrival on Unit: 09/21/19 Time of Arrival on Unit: 13:58 Mode of Transport: Ambulatory - Complaint OB-Reason for Admission/Chief Complaint: Observation/Evaluation Comment: Swelling of bilateral feet and ankles Medical History - Information : 2 Para: 1 Term: 1 : 0 Abortions: Spontaneous or Elective: 0 Number of Living Children: 1 - Gestational Age Gestational Age by MICHAEL (wks/days): 35 Weeks and 4 Days - History Complications: Multiple Review of Systems - Review of Systems Constitutional: No problems Breast: No problems ENT: No problems Cardiovascular: No problems Respiratory: No problems Gastrointestinal: No problems Genitourinary: No problems Musculoskeletal: No problems Neurological: No problems Skin: No problems Vital Signs - Temperature Temperature: 97.4 F Temperature Source: Temporal Artery Scan - Pulse Right Sitting Brachial Pulse Rate: 83 Pulse Assessment Method: Automatic Cuff - Respirations Respiratory Rate: 16 Oxygen Delivery Method: Room Air - Blood Pressure Right Arm Sitting Blood Pressure: 127/73 Blood Pressure Mean: 91 Blood Pressure Source: Automatic Cuff Medical Screen Scoring (Pre) - Cervical Exam Dilation: Exam Deferred Effacement: Exam Deferred Membranes: Intact - Uterine Contractions Frequency: > 5 minutes apart = 1 Duration: N/A Intensity: N/A - Maternal Vital Signs Maternal Temperature: N/A Maternal Blood Pressure: N/A Signs of Preeclampsia: N/A Maternal Respirations: N/A - Maternal Trauma Maternal Trauma: N/A - Assessment - Baby A Baseline FHR: 120 Heart Rate - NICHD Category: Category I (Normal) = 0 NST: Reactive Position: N/A Station: N/A - Assessment - Baby B Baseline FHR: 120 Heart Rate - NICHD Category: Category I (Normal) = 0 NST: Reactive Position: N/A Station: N/A - Total Score - Baby A Total Score - Baby A: 1 - Total Score - Baby B Total Score - Baby B: 1 - Total Score - Baby C Total Score - Baby C: 1 - Level of Risk - Baby A Level of Risk - Baby A: Low (0-5) - Level of Risk - Baby B Level of Risk - Baby B: Low (0-5) - Level of Risk - Baby C Level of Risk - Baby C: Low (0-5) Physician Notification (Pre) - Physician Notified Physician Notified Date: 09/21/19 Physician Notified Time: 14:25 - Notification Comment Comment: Reviewed pts c/o, negative PIH asst, BPs reviewed, swelling of bilaternal ankles/feet. States pt may be d/c home, compression stockings. Follow up as scheduled tomorrow. Disposition - Disposition OB Disposition: Discharge to home, Written follow up instructions reviewed Discharge Date: 09/21/19 Discharge Time: 14:35 I agree with the RN Medical Screening Exam: Yes Risk & Benefit of care provided described in d/c instruction: Yes Diagnosis: TWIN , DICHORIONIC/DIAMNIOTIC, THIRD TRIMESTER
== END 2019-09-21 14:35 | disposition home or self-care (01) ==
LOC: FBPOP 13:55
PROVIDERS: ATTEND Obstetrics & Gynecology
DX: O30.043 Twin pregnancy, dichorionic/diamniotic, third trimester (principal); Z3A.35 35 weeks gestation of pregnancy
CPT/HCPCS: 59025; 99213; 99215

== ENCOUNTER 2019-09-23 17:11 | Outpatient (CLI) | payer BC | END 2019-09-23 17:50 | disposition home or self-care (01) | LOC: FBPOP 17:11 | PROVIDERS: ATTEND Obstetrics & Gynecology | DX: O30.009 Twin pregnancy, unspecified number of placenta and unspecified number of amniotic sacs, unspecified trimester (principal); Z3A.00 Weeks of gestation of pregnancy not specified | CPT/HCPCS: 59025 ==

== ENCOUNTER 2019-10-01 14:01 | Inpatient (IN) | payer BC ==
[2019-10-01 15:06] LABS: Amorphous Sediment,Urine Rare /hpf; Appearance,Urine Cloudy (Clear); Bacteria,Urine Rare /hpf; Bilirubin,Urine Negative (Negative); Blood,Urine Negative (Negative); Color,Urine Light Yellow; Glucose,Urine (UA) Negative (Negative); Ketones,Urine Negative (Negative); Leukocyte Esterase,Urine Moderate (Negative); Mucus,Urine Rare /hpf; Nitrite,Urine Negative (Negative); Protein,Urine Negative (Negative); RBC,Urine 4 /hpf (0-5); Specific Gravity,Urine 1.007 (1.001-1.035); Squamous Epithelial Cell,Urine 13 /hpf (0-4); Urobilinogen,Urine <2.0 mg/dL (<2.0); WBC,Urine 11 /hpf (0-5)
[2019-10-01 15:12] LABS: Protein/Creatinine Ratio,Urine 0.489
[2019-10-01 15:49] LABS: Basophils % (A) 0 %; Eosinophils # (A) 0.2 k/uL (0-0.7); Eosinophils % (A) 2 %; HCT 37.5 % (34.0-46.0); HGB 12.7 gm/dL (11.4-16.0); Lymphocytes # (A) 1.3 k/uL (1.0-4.8); Lymphocytes % (A) 17 %; MCH 32.4 pg (25.0-35.0); MCHC 33.9 g/dL (31.0-37.0); MCV 95.7 fL (80.0-100.0); Mean Platelet Volume 9.5; Monocytes # (A) 0.3 k/uL (0-1.0); Monocytes % (A) 4 %; Neutrophils # (A) 5.7 k/uL (1.3-7.7); Neutrophils % (A) 74 %; Platelet Count 99 k/uL (150-450); RBC 3.92 m/uL (3.80-5.40); RDW 15.2 % (11.5-15.5); WBC 7.7 k/uL (3.8-10.6)
[2019-10-01] MEDS ORDERED: CITRIC ACID-SODIUM CITRATE 15 ML CUP PO ONE (15:50)
[2019-10-01] MEDS ORDERED: CLINDAMYCIN 600 MG in DEXTROSE 5% IN WATER 50 ML IVPB STA ×2 (15:51)
[2019-10-01 15:54] LABS: ALT 15 U/L (4-34); AST 50 U/L (14-36); African American GFR (CKD) >90 (>60 ml/min/1.73 sqM); Blood Urea Nitrogen 15 mg/dL (7-17); LDH 896 U/L (313-618); Non-African American GFR(CKD) >90 (>60 ml/min/1.73 sqM); Uric Acid 8.1 mg/dL (3.7-7.4)
--- NOTE | 2019-10-01 15:55 | P.HPOB ---
History of Present Illness H&P Date: 10/01/19 Chief Complaint: Intrauterine at 37 weeks: Twins: Preeclampsia Claudia is a 34-year-old 2 para 1 with a history of twins: Medically she has a history of endometriosis with 2 diagnostic laparoscopies diagnosing stage IV endometriosis. The surgeries were done by infertility and she received fertility treatments to allow her to get . She relates that her Precis course has been generally unremarkable and she is been followed very closely during this with nonstress tests and close monitoring. Today she came in for her normal nonstress test blood pressure initially was 140/92. Repeat blood pressures have remained elevated in the 140/90 range and preeclamptic labs were ordered. It is noted that her protein creatinine ratio is 0.48 signifying likely increase in protein concentration in her urine and suspect early preeclampsia. In discussing symptomatology with her she denies headache/epigastric pain/any visual changes. However she does have +3 deep tendon reflexes in the left lower extremity but plus to everywhere else. Risks /benefits/alternatives to primary low transverse section was done she was scheduled for Friday for her and tubal ligation. We'll make every effort to try and do a tubal however, if she has significant scarring in her posterior cul-de-sac it may be very difficult to in the operating suite it is difficult to say for certain. All questions were answered for her and we'll plan to move forward with section today. heart tones bilaterally show category 1 tracing and are reactive. Past Medical History Past Medical History: No Reported History History of Any Multi-Drug Resistant Organisms: None Reported Past Surgical History: Ablation Additional Past Surgical History / Comment(s): Laparoscopy with ablation of endometriosis 07/2016 Past Anesthesia/Blood Transfusion Reactions: No Reported Reaction Smoking Status: Never smoker - Past Family History Mother Family Medical History: Hypertension Father Family Medical History: Hypertension Medications and Allergies Home Medications Medication Instructions Recorded Confirmed Type Pnv No.95/Ferrous Fum/Folic AC 1 tab PO HS 10/25/17 09/30/19 History [ Multivitamin Tablet] Docusate [Colace] 100 mg PO DAILY PRN 11/03/17 09/30/19 History guaiFENesin SYRUP 100MG/5ML 10 ml PO DIRECTED PRN 09/30/19 09/30/19 History [Robitussin] Allergies Allergy/AdvReac Type Severity Reaction Status Date / Time amoxicillin Allergy Rash/Hives Verified 10/01/19 14:30 Exam Osteopathic Statement: *. No significant issues noted on an osteopathic structural exam other than those noted in the History and Physical/Consult. Intake and Output 10/01/19 10/01/19 10/01/19 06:59 14:59 22:59 Other: Weight 65.771 kg - OBG Physical Exam Breast: both: normal (no masses) Abdomen: bowel sounds normal, no diffuse tenderness, no bruit present, no guarding noted, no hepatomegaly, no splenomegaly, no mass Vulva: both: normal Vagina: normal moisture, no discharge Cervix: no lesion, no discharge Uterus: normal size, normal contour Adnexa: both: normal Anus/Rectum: normal perianal skin, no rectal mass, no hemorrhoids, heme negative Results Result Diagrams: 10/01/19 15:20 Abnormal Lab Results - Last 24 Hours (Table) 10/01/19 10/01/19 Range/Units 14:38 15:20 Plt Count 99 L (150-450) k/uL Urine Appearance Cloudy H (Clear) Ur Leukocyte Esterase Moderate H (Negative) Urine WBC 11 H (0-5) /hpf Ur Squamous Epith Cells 13 H (0-4) /hpf Amorphous Sediment Rare H (None) /hpf Urine Bacteria Rare H (None) /hpf Urine Mucus Rare H (None) /hpf
[2019-10-01 16:09] LABS: Partial Thromboplastin Time 24.3 sec (22.0-30.0)
[2019-10-01] MEDS: LACTATED RINGERS 1,000 ML IV SCH ×2 (16:31→23:04)
[2019-10-01] MEDS ORDERED: ONDANSETRON 4 MG/2 ML VIAL ONE (18:00)
[2019-10-01] MEDS ORDERED: MORPHINE SULFATE (PF) 0.3 MG/0.3 ML SYR ONE (18:00)
[2019-10-01] MEDS ORDERED: CARBOPROST TROMETHAMINE 250 MCG/ML 1 ML AMP IM ONE (18:00)
[2019-10-01] MEDS ORDERED: fentaNYL (PF) 50 MCG/ML 2 ML AMP ONE (18:00)
[2019-10-01] MEDS ORDERED: OXYTOCIN 10 UNIT/ML 1 ML VIAL ONE (18:00)
[2019-10-01] MEDS ORDERED: MISOPROSTOL 200 MCG TAB RECTAL STA (18:32)
--- NOTE | 2019-10-01 19:02 | P.OP ---
Date of Procedure: 10/01/19 Preoperative Diagnosis: Intrauterine at term: Twin gestation: Family planning: Pre-eclampsia Postoperative Diagnosis: Same with post hemorrhage Procedure(s) Performed: Primary low-transverse section with bilateral tubal occlusion with Filshie clips Anesthesia: spinal Surgeon: Nacho Goss Sagger Maker #1: Taryn Desir Estimated Blood Loss (ml): 2,400 IV fluids (ml): 1,000 Urine output (ml): 400 Pathology: other (Placenta) Condition: stable Disposition: floor Operative Findings: Twin gestation baby a girl: Baby B boy with a nuchal cord 1. Post hemorrhage. Pitocin was initiated immediately after delivery of the babies and during closure uterus remained atonic therefore 10 of Pitocin was given IV. When this did not resolve the issue dose of Hemabate was given IM this did improve the bleeding but she continued to have an atonic uterus from about the middle of uterus up to the fundus therefore 600 of Cytotec was given as this was all that was available that time it was given per rectum. Following closure another dose of IM Hemabate was given Description of Procedure: Patient was taken to the operating suite where a spinal anesthetic was found be adequate. She was prepped and draped in the normal sterile fashion and placed in dorsal supine position with leftward tilt. Initially a Pfannenstiel skin incision was made and this incision was then carried through to the underlying layer of the fascia was second knife. Fascia was then nicked in midline and this opening was extended laterally with Farfan scissors. Superior and inferior aspect of this incision were then grasped tented up and bluntly and sharply dissected off the rectus muscles. Rectus muscles were then divided the midline and sharp dissection through the peritoneum was done. This opening was then extended superiorly and inferiorly with good visualization of both bowel bladder. Bladder blade was then placed bladder flap identified and her menstrual scissors carried across face the uterus. This was then bluntly dissected out of the operative field. Knife was then used to incise uterus this opening was fully developed with a hemostat and then extended bluntly. Baby A's head was then easily delivered with gentle traction followed by the anterior posterior shoulders. Mouth nares were bulb suctioned umbilical cord was clamped cut usual fashion an nursery personnel was present and assumed care. Once this was completed baby B was rotated slightly so that the head was in the vertex position and following artificial rupture membranes baby boy B was delivered again with gentle pressure and traction mouth nares were bulb suctioned. Umbilical was then clamped cut usual fashion again nursery personnel including the data entry supervisor were present to assume care. Placenta was then delivered intact Pitocin was added to the IV. Uterus was then exteriorized cleared of clots and debris and closed in 2 layers with 0 Vicryl suture. She was noted to have hemorrhage during this process and medication were provided as above. Once uterus felt like uterus was replaced into the abdomen following suctioning of blood and debris from the posterior cul-de-sac. Peritoneal layers layer was closed with 0 Vicryl suture. Fascial layer was closed with 0 Vicryl suture. 3-0 Vicryl was then used to close incision subcuticularly. Sponge, lap, needle counts were all correct 2. Patient was then taken to the recovery room in stable and satisfactory condition.
[2019-10-01] MEDS: LOPERAMIDE 2 MG CAP PO SCH (21:04)
--- NOTE | 2019-10-01 21:26 | P.PN ---
Progress Note - Text Progress Note Date: 10/01/19 Negative seen and evaluated. Bleeding is significantly less than uterus is firm below the umbilicus. Her last blood pressures 126/68. She has no signs or symptoms of neurologic disturbance no headache, epigastric pain or visual changes. All she is still risk for seizure with preeclampsia due to the amount of bleeding she had and difficulty in obtaining tonicity of the uterus will at this time defer starting mag sulfate as I'm concerned that this may reverse the [place] that we have obtained finally and put her at risk for more bleeding ultimately potentially requiring surgical intervention. I explained this to her my concerns and she understands and agrees at this time that it may be better just to watch her and if any changes in symptoms or for blood pressures returned to an elevated state are persistent or consistent basis we'll plan to initiate the mag sulfate. We'll plan to repeat preeclampsia labs in a.m.\ While dictating this note, I was called back down to see the patient who again has begun to have some bleeding. At this time is not heavy but is certainly more than I would expect in this circumstance. A stat CBC has been ordered along with coags to determine blood loss level and verify stability of platelets and rule out DIC. If bleeding continues or she becomes symptomatic may need to move forward with surgical intervention. At the time of conclusion in the C- section bleeding had stopped and no use for a bakri balloon could be made at that time. I cannot find any evidence of placement of back re-balloon postoperatively into her uterus as predominantly following C-sections the backer balloon is placed transabdominally during the closure due to hypotonicity. At this time her uterus does appear to be tonic and it is unclear if the bleeding is due to early DIC or truly is from decreased tonicity. Labs are pending and decisions moving forward will be based on lab findings and physical symptoms. Currently again her vital signs are stable. She denies lightheadedness or other signs or symptoms of hypovolemia therefore we we'll monitor her extremely closely and if there is need certainly surgical intervention is still an option and she and I as well as her have discussed potential for surgical intervention including but not limited to potential placement of back re-balloon intraoperatively versus b jung suture versus potential supracervical hysterectomy.
[2019-10-01 21:29] LABS: Basophils % (A) 0 %; Eosinophils # (A) 0.1 k/uL (0-0.7); Eosinophils % (A) 1 %; HCT 27.7 % (34.0-46.0); Lymphocytes # (A) 1.7 k/uL (1.0-4.8); Lymphocytes % (A) 15 %; MCH 32.5 pg (25.0-35.0); MCHC 33.9 g/dL (31.0-37.0); MCV 95.8 fL (80.0-100.0); Mean Platelet Volume 9.4; Monocytes # (A) 0.4 k/uL (0-1.0); Monocytes % (A) 3 %; Neutrophils # (A) 8.7 k/uL (1.3-7.7); Neutrophils % (A) 79 %; Platelet Count 106 k/uL (150-450); RBC 2.89 m/uL (3.80-5.40); RDW 15.3 % (11.5-15.5); WBC 10.9 k/uL (3.8-10.6)
[2019-10-01 21:39] LABS: HGB 9.4 gm/dL (11.4-16.0)
[2019-10-01 21:46] LABS: Partial Thromboplastin Time 24.3 sec (22.0-30.0); Prothrombin Time 10.6 sec (9.0-12.0)
[2019-10-01] MEDS ORDERED: NALOXONE 0.4 MG/ML 1 ML VIAL IV PRN (23:20)
[2019-10-01] MEDS ORDERED: diphenhydrAMINE 50 MG CAP PO PRN (23:20)
[2019-10-01] MEDS ORDERED: KETOROLAC 30 MG/ML 1 ML VIAL IVP PRN (23:20)
[2019-10-01] MEDS ORDERED: diphenhydrAMINE 50 MG/ML 1 ML VIAL IVP PRN ×2 (23:20)
[2019-10-01] MEDS ORDERED: METOCLOPRAMIDE 5 MG/ML 2 ML VIAL IVP PRN (23:20)
[2019-10-01] MEDS ORDERED: ONDANSETRON 4 MG/2 ML VIAL IVP PRN (23:20)
[2019-10-01] MEDS ORDERED: ZOLPIDEM 5 MG TAB PO PRN (23:20)
[2019-10-01] MEDS ORDERED: diphenhydrAMINE 25 MG CAP PO PRN (23:20)
[2019-10-01] MEDS ORDERED: LACTATED RINGERS 1,000 ML IV SCH (23:30)
[2019-10-02] MEDS ORDERED: SODIUM CHLORIDE 0.9% 500 ML 500 ML IV ONE (01:18)
[2019-10-02] MEDS ORDERED: SODIUM CHLORIDE 0.9% 500 ML 1,000 ML IV ONE (01:30)
[2019-10-02] MEDS ORDERED: SODIUM CHLORIDE 0.9% 1,000 ML IV ONE (04:02)
[2019-10-02 07:02] LABS: Appearance,Urine Cloudy (Clear); Bacteria,Urine Rare /hpf; Bilirubin,Urine Negative (Negative); Blood,Urine Moderate (Negative); Color,Urine Yellow; Glucose,Urine (UA) Negative (Negative); Hyaline Casts,Urine 32 /lpf (0-2); Ketones,Urine Negative (Negative); Leukocyte Esterase,Urine Large (Negative); Mucus,Urine Occasional /hpf; Nitrite,Urine Negative (Negative); Protein,Urine Trace (Negative); RBC,Urine 34 /hpf (0-5); Specific Gravity,Urine 1.016 (1.001-1.035); Squamous Epithelial Cell,Urine <1 /hpf (0-4); Urobilinogen,Urine <2.0 mg/dL (<2.0); WBC,Urine 29 /hpf (0-5)
--- NOTE | 2019-10-02 07:23 | P.PN ---
Progress Note - Text Progress Note Date: 10/02/19 Patient is s/p delivery of twins. Bleeding overnight now improved. No ambulation per OB team. Pt denies weakness or paresthesia. Denies headache. Minimal pruritis. Pain controlled. POD#1 s/p with spinal duramorph - good recovery from spinal
[2019-10-02 07:27] LABS: Basophils % (A) 0 %; Eosinophils % (A) 0 %; HCT 20.4 % (34.0-46.0); Lymphocytes % (A) 15 %; MCH 32.1 pg (25.0-35.0); MCHC 33.1 g/dL (31.0-37.0); Macrocytosis Slight; Monocytes # (A) 0.6 k/uL (0-1.0); Monocytes % (A) 4 %; Neutrophils # (A) 10.7 k/uL (1.3-7.7); Neutrophils % (A) 79 %; RBC 2.11 m/uL (3.80-5.40); WBC 13.5 k/uL (3.8-10.6)
[2019-10-02 07:29] LABS: HGB 6.8 gm/dL (11.4-16.0)
[2019-10-02 07:30] LABS: Platelet Count 99 k/uL (150-450)
--- NOTE | 2019-10-02 09:25 | P.PNOBGPC ---
Subjective - Subjective Principal diagnosis: Postop day 1: hemorrhage Interval history: Negative is doing very well this morning. She sitting up in bed relates that she has no lightheadedness or symptoms while she is lying down. Nath catheter will be removed shortly and we'll plan to ambulate a little bit later on this morning early this afternoon. Hemoglobin this morning was noted to be 6.8 we'll plan repeat in the a.m. unless other changes occur and require earlier check. Preeclamptic labs including AST ALT and platelets are reevaluated this morning. Platelets are stable and 99,000 and liver enzymes have actually decreased from yesterday. She again relates no signs or symptoms of preeclampsia denies any severe features. Patient reports: Reports appetite normal, Reports voiding normally (Past Nath), Reports pain well controlled, Reports ambulating normally : doing well, in NICU (Baby boy using special care nursery. Baby girl a is in the room with family) Objective - Vital Signs Latest vital signs: Vital Signs Temp Pulse Resp BP Pulse Ox 10/02/19 07:35 98.2 F 91 17 101/68 100 10/02/19 04:00 98 F 91 16 102/56 98 10/02/19 00:00 98 F 85 16 106/56 98 10/01/19 21:26 98.9 F 114 H 16 115/77 96 10/01/19 20:56 106 H 16 125/71 98 10/01/19 20:26 112 H 16 126/68 99 10/01/19 20:11 102 H 15 150/82 98 10/01/19 19:56 97.4 F L 95 16 159/75 99 10/01/19 19:41 91 15 153/81 100 10/01/19 19:30 90 16 143/74 98 10/01/19 19:15 96.4 F L 84 16 120/78 98 10/01/19 15:37 97.7 F 69 16 144/89 98 10/01/19 14:24 97.7 F 69 16 144/89 98 Intake and Output 10/01/19 10/02/19 10/02/19 22:59 06:59 14:59 Intake Total 1300 725 Output Total 450 150 Balance 850 -150 725 Intake: IV 1300 125 Oral 600 Output: Urine 450 150 Other: # Bowel Movements 4 Weight 65.771 kg - Labs Labs: Abnormal Lab Results - Last 24 Hours (Table) 10/01/19 10/01/19 10/01/19 Range/Units 14:38 15:20 15:20 WBC (3.8-10.6) k/uL RBC (3.80-5.40) m/uL Hgb (11.4-16.0) gm/dL Hct (34.0-46.0) % RDW (11.5-15.5) % Plt Count 99 L (150-450) k/uL Neutrophils # (1.3-7.7) k/uL Uric Acid 8.1 H (3.7-7.4) mg/dL AST 50 H (14-36) U/L Lactate Dehydrogenase 896 H (313-618) U/L Urine Appearance Cloudy H (Clear) Urine Protein (Negative) Urine Blood (Negative) Ur Leukocyte Esterase Moderate H (Negative) Urine RBC (0-5) /hpf Urine WBC 11 H (0-5) /hpf Ur Squamous Epith Cells 13 H (0-4) /hpf Amorphous Sediment Rare H (None) /hpf Urine Bacteria Rare H (None) /hpf Hyaline Casts (0-2) /lpf Urine Mucus Rare H (None) /hpf 10/01/19 10/02/19 10/02/19 Range/Units 21:17 06:38 06:38 WBC 10.9 H 13.5 H (3.8-10.6) k/uL RBC 2.89 L 2.11 L (3.80-5.40) m/uL Hgb 9.4 L D 6.8 L* D (11.4-16.0) gm/dL Hct 27.7 L 20.4 L (34.0-46.0) % RDW 16.0 H (11.5-15.5) % Plt Count 106 L 99 L (150-450) k/uL Neutrophils # 8.7 H 10.7 H (1.3-7.7) k/uL Uric Acid (3.7-7.4) mg/dL AST 41 H (14-36) U/L Lactate Dehydrogenase (313-618) U/L Urine Appearance (Clear) Urine Protein (Negative) Urine Blood (Negative) Ur Leukocyte Esterase (Negative) Urine RBC (0-5) /hpf Urine WBC (0-5) /hpf Ur Squamous Epith Cells (0-4) /hpf Amorphous Sediment (None) /hpf Urine Bacteria (None) /hpf Hyaline Casts (0-2) /lpf Urine Mucus (None) /hpf 10/02/19 Range/Units 06:45 WBC (3.8-10.6) k/uL RBC (3.80-5.40) m/uL Hgb (11.4-16.0) gm/dL Hct (34.0-46.0) % RDW (11.5-15.5) % Plt Count (150-450) k/uL Neutrophils # (1.3-7.7) k/uL Uric Acid (3.7-7.4) mg/dL AST (14-36) U/L Lactate Dehydrogenase (313-618) U/L Urine Appearance Cloudy H (Clear) Urine Protein Trace H (Negative) Urine Blood Moderate H (Negative) Ur Leukocyte Esterase Large H (Negative) Urine RBC 34 H (0-5) /hpf Urine WBC 29 H (0-5) /hpf Ur Squamous Epith Cells (0-4) /hpf Amorphous Sediment (None) /hpf Urine Bacteria Rare H (None) /hpf Hyaline Casts 32 H (0-2) /lpf Urine Mucus Occasional H (None) /hpf
[2019-10-02] MEDS: SENNOSIDES-DOCUSATE SODIUM 1 EACH TAB PO SCH ×2 (12:38→19:55)
[2019-10-02] MEDS: LOPERAMIDE 2 MG CAP PO SCH ×4 (12:38→23:31)
[2019-10-02] MEDS: HYDROcodone/APAP 7.5-325MG 1 EACH TAB PO PRN ×2 (13:27→21:06)
[2019-10-02] MEDS: LACTATED RINGERS 1,000 ML IV SCH ×2 (13:29→19:55)
[2019-10-02] MEDS: IBUPROFEN 600 MG TAB PO PRN (18:11)
[2019-10-03] MEDS: IBUPROFEN 600 MG TAB PO PRN ×3 (02:51→19:43)
[2019-10-03 05:50] LABS: Anisocytosis Slight; Basophils % (A) 0 %; Eosinophils # (A) 0.1 k/uL (0-0.7); Eosinophils % (A) 1 %; Lymphocytes # (A) 1.4 k/uL (1.0-4.8); Lymphocytes % (A) 11 %; MCH 33.6 pg (25.0-35.0); MCHC 34.9 g/dL (31.0-37.0); MCV 96.1 fL (80.0-100.0); Macrocytosis Slight; Mean Platelet Volume 8.7; Monocytes # (A) 0.4 k/uL (0-1.0); Monocytes % (A) 4 %; Neutrophils # (A) 10.5 k/uL (1.3-7.7); Neutrophils % (A) 83 %; Platelet Count 103 k/uL (150-450); Poikilocytosis Slight; RBC 1.63 m/uL (3.80-5.40); RDW 16.6 % (11.5-15.5); WBC 12.6 k/uL (3.8-10.6)
[2019-10-03 05:57] LABS: HCT 15.6 % (34.0-46.0); HGB 5.5 gm/dL (11.4-16.0)
[2019-10-03] MEDS: HYDROcodone/APAP 7.5-325MG 1 EACH TAB PO PRN ×3 (06:38→23:34)
--- NOTE | 2019-10-03 06:40 | P.PNOBGPC ---
Subjective - Subjective Principal diagnosis: Postoperative day 2 Interval history: Negative seen and evaluated this morning. She is resting comfortably in bed she denies headache/dizziness/any other signs or symptoms of hypovolemia. She's been caring for her 1 throughout the evening and voices no complaints. However, her hemoglobin this morning 5.5 which is again decreased from yesterday and will plan to grams of packed red blood cells for this. She is noted to not be bleeding however, she shows no active signs of any bleeding and again her vital signs and symptomatology did not relate to the hemoglobin that is noted. Risks of transfusion reviewed with the patient. She did have similar issues with her last where she had hemorrhage and required rehospitalization for same. We're being aggressive and monitoring her very carefully at this time with respect to treatments as I'm concerned with a hemoglobin of 5.5 that she will start becoming more symptomatically having other issues. Physical exam heart regular, lungs clear, extremities without pain. Abdomen is soft uterus is firm and lochia is reported to be light at this time. Again I see no areas of active bleeding and with her overall stability and the way she looks will not plan on doing anything other than transfuse and monitoring closely. Assessment postop day 2. hemorrhage with resultant acute anemia Plan transfusion to units packed red blood cells and continued very close observation Patient reports: Reports appetite normal, Reports voiding normally, Reports pain well controlled, Reports ambulating normally : doing well, in NICU Objective - Vital Signs Latest vital signs: Vital Signs Temp Pulse Resp BP Pulse Ox 10/02/19 23:28 98.4 F 100 16 114/74 96 10/02/19 15:05 98.1 F 87 17 125/75 100 10/02/19 12:00 98.2 F 94 16 107/61 100 10/02/19 07:35 98.2 F 91 17 101/68 100 Intake and Output 10/02/19 10/02/19 10/03/19 14:59 22:59 06:59 Intake Total 1350 Output Total 530 500 Balance 820 -500 Intake: IV 750 Oral 600 Output: Urine 530 500 Uretheral (Nath) 500 Other: # Voids 1 2 - Exam Lungs: bilateral: normal Chest: Normal S1, Normal S2 Extremities: Present: normal Abdomen: Present: normal appearance, soft. Absent: distention, tenderness Incision: Present: normal, dry, intact Uterus: Present: normal, firm - Labs Labs: Abnormal Lab Results - Last 24 Hours (Table) 10/01/19 10/02/19 10/02/19 Range/Units 15:24 06:38 06:38 WBC 13.5 H (3.8-10.6) k/uL RBC 2.11 L (3.80-5.40) m/uL Hgb 6.8 L* D (11.4-16.0) gm/dL Hct 20.4 L (34.0-46.0) % RDW 16.0 H (11.5-15.5) % Plt Count 99 L (150-450) k/uL Neutrophils # 10.7 H (1.3-7.7) k/uL AST 41 H (14-36) U/L Urine Appearance (Clear) Urine Protein (Negative) Urine Blood (Negative) Ur Leukocyte Esterase (Negative) Urine RBC (0-5) /hpf Urine WBC (0-5) /hpf Urine Bacteria (None) /hpf Hyaline Casts (0-2) /lpf Urine Mucus (None) /hpf Crossmatch See Detail 10/02/19 10/03/19 Range/Units 06:45 05:10 WBC 12.6 H (3.8-10.6) k/uL RBC 1.63 L (3.80-5.40) m/uL Hgb 5.5 L* (11.4-16.0) gm/dL Hct 15.6 L* (34.0-46.0) % RDW 16.6 H (11.5-15.5) % Plt Count 103 L (150-450) k/uL Neutrophils # 10.5 H (1.3-7.7) k/uL AST (14-36) U/L Urine Appearance Cloudy H (Clear) Urine Protein Trace H (Negative) Urine Blood Moderate H (Negative) Ur Leukocyte Esterase Large H (Negative) Urine RBC 34 H (0-5) /hpf Urine WBC 29 H (0-5) /hpf Urine Bacteria Rare H (None) /hpf Hyaline Casts 32 H (0-2) /lpf Urine Mucus Occasional H (None) /hpf Crossmatch
[2019-10-03] MEDS: SENNOSIDES-DOCUSATE SODIUM 1 EACH TAB PO SCH ×2 (07:47→19:42)
[2019-10-03] MEDS: LOPERAMIDE 2 MG CAP PO SCH ×4 (07:47→22:35)
[2019-10-04] MEDS: IBUPROFEN 600 MG TAB PO PRN ×3 (05:40→18:06)
[2019-10-04] MEDS: ACETAMINOPHEN TAB 325 MG TAB PO PRN ×2 (07:41→14:07)
[2019-10-04] MEDS: SENNOSIDES-DOCUSATE SODIUM 1 EACH TAB PO SCH ×2 (07:42→22:38)
[2019-10-04 08:43] LABS: Anisocytosis Slight; Basophils % (A) 0 %; Eosinophils # (A) 0.2 k/uL (0-0.7); Eosinophils % (A) 2 %; HCT 23.7 % (34.0-46.0); Lymphocytes # (A) 1.5 k/uL (1.0-4.8); Lymphocytes % (A) 14 %; MCH 30.9 pg (25.0-35.0); MCHC 33.3 g/dL (31.0-37.0); MCV 92.7 fL (80.0-100.0); Mean Platelet Volume 8.7; Monocytes # (A) 0.3 k/uL (0-1.0); Monocytes % (A) 3 %; Neutrophils # (A) 8.2 k/uL (1.3-7.7); Neutrophils % (A) 79 %; Platelet Count 143 k/uL (150-450); Poikilocytosis Slight; RBC 2.56 m/uL (3.80-5.40); RDW 17.9 % (11.5-15.5); WBC 10.3 k/uL (3.8-10.6)
[2019-10-04 08:50] LABS: HGB 7.9 gm/dL (11.4-16.0)
--- NOTE | 2019-10-04 09:05 | P.DS ---
Providers Date of admission: 10/01/19 15:37 Expected date of discharge: 10/04/19 Attending physician: Daniela Rivera Primary care physician: Stated None Hospital Course: This is a 34-year-old female 2 para 1 with an estimated date of confinement of 10/22/2019, estimated gestational age of 37-0/7 weeks, who presented with elevated blood pressures for routine nonstress test. Labs were performed and she was diagnosed with preeclampsia. She therefore underwent a primary section with tubal ligation on 10/01/2019 for twin gestation and family-planning. She had significant blood loss with hemorrhage during and after delivery. She received numerous medications to control her bleeding. By postoperative day #2, her hemoglobin had dropped to 5.5. She did receive 2 units of packed red blood cells. Currently her hemoglobin is up to 7.9. She denies any shortness of breath or lightheadedness. She states her bleeding is minimal at this time. She is passing flatus but no bowel movement yet. Her pain is well-controlled with [place] and ibuprofen. In fact she has been cutting back to just Tylenol and ibuprofen unless she absolutely needs and [place]. She would like to go home today because her one baby is still in the level I nursery but she wants to get home to her other child at home. Her vital signs are stable at this time. Abdomen is soft with positive bowel sounds 4. Incision is clean dry and intact with Steri-Strips in place. Extremities show negative Homans. Impression is status post primary section with tubal ligation postoperative day #3. Plan is to discharge home today. Routine postoperative and instructions are given. She will be given a prescription for ibuprofen and [place]. She has signed a start talking opioid form. She denies any other opioid use. She is advised to follow up in the office in 1 week for a postoperative check and in 6 weeks for check. She is advised to call the office if she has any further questions or concerns prior to her appointment time. Procedures: Primary low transverse section with bilateral partial salpingectomy on 10/01/2019 Patient Condition at Discharge: Stable Plan - Discharge Summary New Discharge Prescriptions: New Ibuprofen [Motrin] 600 mg PO Q6HR PRN #60 tab PRN Reason: Mild Pain Or Fever >= 100.5 HYDROcodone/APAP 5-325MG [Richland 5-325] 1 tab PO Q4HR PRN 3 Days #18 tab PRN Reason: Moderate To Severe Pain Continue Pnv No.95/Ferrous Fum/Folic AC [ Multivitamin Tablet] 1 tab PO HS No Action Docusate [Colace] 100 mg PO DAILY PRN PRN Reason: Constipation guaiFENesin SYRUP 100MG/5ML [Robitussin] 10 ml PO DIRECTED PRN PRN Reason: Congestion Discharge Medication List Pnv No.95/Ferrous Fum/Folic AC [ Multivitamin Tablet] 1 tab PO HS 10/25/17 [History] Docusate [Colace] 100 mg PO DAILY PRN 11/03/17 [History] guaiFENesin SYRUP 100MG/5ML [Robitussin] 10 ml PO DIRECTED PRN 09/30/19 [History] HYDROcodone/APAP 5-325MG [[place] 5-325] 1 tab PO Q4HR PRN 3 Days #18 tab 10/04/19 [Rx] Ibuprofen [Motrin] 600 mg PO Q6HR PRN #60 tab 10/04/19 [Rx] Follow up Appointment(s)/Referral(s): Daniela Rivera DO [Doctor of Osteopathic Medicine] - 1 Week Activity/Diet/Wound Care/Special Instructions: Instructions 1. Do not begin any exercise program for 3 weeks. 2. Do not resume sexual relations for 3 weeks or longer if uncomfortable. 3. You may take tub baths or showers at any time. 4. You may use tampons if desired after 3 weeks. 5. Keep the area of episiotomy (stitches) clean and dry. 6. If you are not nursing, wear a good fitting, supportive bra during the day and limit fluid intake for at least 1 week to prevent breast engorgement. 7. Call the office, [phone], within the next week to make appointment for your 6 week checkup if it has not already been made. 8. Report any of the following occurrences to the doctor promptly: a. Heavy, excessive bleeding b. Chills, fever c. Burning or frequency of urination d. Pain or redness and breasts if nursing e. Increasing pain or swelling in episiotomy (stitches). In addition to the above instructions, the following additional should be followed: 1. No heavy lifting or straining (exercising) until after 6 week checkup. 2. Keep abdominal incision clean and dry: You may wear a dressing if more comfortable. 3. Make office appointment for 10 days after going home or as instructed by her doctor. Discharge Disposition: HOME SELF-CARE
[2019-10-04 09:06] LABS: Polychromasia Present
[2019-10-04] MEDS: LOPERAMIDE 2 MG CAP PO SCH ×3 (10:07→18:44)
[2019-10-04] MEDS: HYDROcodone/APAP 7.5-325MG 1 EACH TAB PO PRN (19:14)
[2019-10-05] MEDS: IBUPROFEN 600 MG TAB PO PRN ×2 (00:28→08:19)
[2019-10-05 03:17] VITALS: RESP 16
[2019-10-05] MEDS: LOPERAMIDE 2 MG CAP PO SCH (03:22)
[2019-10-05] MEDS: HYDROcodone/APAP 7.5-325MG 1 EACH TAB PO PRN ×2 (05:54→12:06)
[2019-10-05] MEDS: SENNOSIDES-DOCUSATE SODIUM 1 EACH TAB PO SCH (08:19)
[2019-10-05 08:47] VITALS: BP 141/86; PULSE 88; TEMP 97.5
== END 2019-10-05 12:20 | disposition home or self-care (01) | DRG 785 ==
LOC: FBPOP 14:01 → 4FBP 15:37
PROVIDERS: ADMIT Obstetrics & Gynecology; ATTEND Obstetrics & Gynecology
PROC: 10D00Z1 Extraction of Products of Conception, Low, Open Approach (ICD-10-PCS; principal; 2019-10-01 19:00)
PROC: 0UL70CZ Occlusion of Bilateral Fallopian Tubes with Extraluminal Device, Open Approach (ICD-10-PCS; principal; 2019-10-01 19:00)
PROC: 30233N1 Transfusion of Nonautologous Red Blood Cells into Peripheral Vein, Percutaneous Approach (ICD-10-PCS; 2019-10-03)
DX: O14.94 Unspecified pre-eclampsia, complicating childbirth (principal); O30.003 Twin pregnancy, unspecified number of placenta and unspecified number of amniotic sacs, third trimester; N97.9 Female infertility, unspecified; O69.81X0 Labor and delivery complicated by cord around neck, without compression, not applicable or unspecified; O72.1 Other immediate postpartum hemorrhage; Z37.2 Twins, both liveborn; Z3A.37 37 weeks gestation of pregnancy; Z82.49 Family history of ischemic heart disease and other diseases of the circulatory system
CPT/HCPCS: 59025; 81001; 82565; 82570; 83615; 84156; 84450; 84460; 84520; 84550; 85025; 85384; 85610; 85730; 86850; 86900; 86901; 86920; 88307; 99215

== ENCOUNTER → 2022-04-22 | Outpatient (CLI) | payer BC ==
--- NOTE | 2022-04-23 20:34 | MM ---
Reason for Exam: Screening (asymptomatic). Patient History: Menarche at age 16. First Full-Term at age 32. Late child-bearing (after 30). Patient has history of breast feeding. Last menstrual period: 04/08/2022 Risk Values: Carrie 5 year model risk: 0.4%. NCI Lifetime model risk: 12.7%. Tissue Density: The breast tissue is extremely dense which could obscure a lesion on mammography. Findings: Analyzed By CAD. No significant mass, suspicious group of microcalcification, or other discrete abnormality is seen. Overall Assessment: Negative, BI-RAD 1 Management: Screening Mammogram of both breasts at age 42. 1. Patient should continue monthly self breast exams. 2. A clinical breast exam by your physician is recommended on an annual basis. 3. This exam should not preclude additional follow-up of suspicious palpable abnormalities. Electronically signed and approved by: Meño Jhaveri M.D. Radiologist
== END | disposition home or self-care (01) ==
LOC: RADMAMWWP 16:19
PROVIDERS: ATTEND Obstetrics & Gynecology
DX: Z12.31 Encounter for screening mammogram for malignant neoplasm of breast (principal)
CPT/HCPCS: 77063; 77067

== ENCOUNTER → 2023-08-09 | Outpatient (CLI) | payer BC ==
[2023-08-09 13:10] LABS: Basophils # (A) 0.02 X 10*3/uL (0.00-0.10); Basophils % (A) 0.5 %; Eosinophils # (A) 0.07 X 10*3/uL (0.04-0.35); Eosinophils % (A) 1.7 %; HCT 40.2 % (37.2-46.3); HGB 12.7 g/dL (12.0-15.0); Lymphocytes # (A) 1.31 X 10*3/uL (0.90-5.00); Lymphocytes % (A) 32.4 %; MCH 29.1 pg (27.0-32.0); MCHC 31.6 g/dL (32.0-37.0); Mean Platelet Volume 9.4 FL (9.5-12.2); Monocytes # (A) 0.29 X 10*3/uL (0.20-1.00); Monocytes % (A) 7.2 %; NRBC Per 100 WBC 0 X 10*3/uL (0.00-0.01); Neutrophils # (A) 2.34 X 10*3/uL (1.80-7.70); Platelet Count 197 X 10*3/uL (140-440); RBC 4.37 X 10*6/uL (4.10-5.20); RDW 12.4 % (11.5-14.5); WBC 4.04 X 10*3/uL (4.50-10.00)
[2023-08-09 13:41] LABS: ALT 16 U/L (8-44); AST 15 U/L (13-35); Albumin 4.4 g/dL (3.8-4.9); Alkaline Phosphatase 34 U/L (41-126); BUN/Creat Ratio 30.33 Ratio (12.00-20.00); Blood Urea Nitrogen 18.2 mg/dL (9.0-27.0); Chloride 106 mmol/L (96-109); Chol/HDL Ratio 2.15 Ratio; Globulin 2.1 g/dL (1.6-3.3); Glucose 88 mg/dL (70-110); LDL Cholesterol,Calculated 81.6 mg/dL (0.0-131.0); Potassium 4.7 mmol/L (3.5-5.5); Sodium 141 mmol/L (135-145); Total Bilirubin 0.4 mg/dL (0.3-1.2); Total Protein 6.5 g/dL (6.2-8.2)
== END | disposition home or self-care (01) ==
LOC: LABWHC1 08:33
PROVIDERS: ATTEND Family Medicine
DX: Z13.21 Encounter for screening for nutritional disorder (principal); Z13.220 Encounter for screening for lipoid disorders; Z13.228 Encounter for screening for other metabolic disorders; Z13.29 Encounter for screening for other suspected endocrine disorder
CPT/HCPCS: 36415; 80053; 80061; 82306; 82607; 84443; 85025

== ENCOUNTER → 2024-10-12 | Outpatient (CLI) | payer BC ==
[2024-10-12 15:04] LABS: ALT 17 U/L (8-44); AST 19 U/L (13-35); Albumin 4.3 g/dL (3.8-4.9); Albumin/Globulin Ratio 1.95 Ratio (1.60-3.17); Alkaline Phosphatase 32 U/L (41-126); BUN/Creat Ratio 22.33 Ratio (12.00-20.00); Blood Urea Nitrogen 13.4 mg/dL (9.0-27.0); Calcium 8.7 mg/dL (8.7-10.3); Carbon Dioxide 23.7 mmol/L (21.6-31.8); Chloride 104 mmol/L (96-109); Chol/HDL Ratio 2.32 Ratio; Globulin 2.2 g/dL (1.6-3.3); Glucose 88 mg/dL (70-110); LDL Cholesterol,Calculated 87.1 mg/dL (0.0-131.0); Potassium 4.3 mmol/L (3.5-5.5); Sodium 136 mmol/L (135-145); Total Bilirubin 0.4 mg/dL (0.3-1.2); Total Protein 6.5 g/dL (6.2-8.2)
[2024-10-12 15:52] LABS: Basophils # (A) 0.03 X 10*3/uL (0.00-0.10); Basophils % (A) 0.4 %; Eosinophils # (A) 0.05 X 10*3/uL (0.04-0.35); Eosinophils % (A) 0.7 %; HGB 13.1 g/dL (12.0-15.0); Lymphocytes # (A) 1.46 X 10*3/uL (0.90-5.00); Lymphocytes % (A) 21.5 %; MCHC 32.8 g/dL (32.0-37.0); MCV 91.7 FL (80.0-97.0); Mean Platelet Volume 9.9 FL (9.5-12.2); Monocytes # (A) 0.37 X 10*3/uL (0.20-1.00); Monocytes % (A) 5.4 %; NRBC Per 100 WBC 0 X 10*3/uL (0.00-0.01); Neutrophils # (A) 4.88 X 10*3/uL (1.80-7.70); Neutrophils % (A) 71.9 %; Platelet Count 180 X 10*3/uL (140-440); RBC 4.36 X 10*6/uL (4.10-5.20); RDW 12.8 % (11.5-14.5)
== END | disposition home or self-care (01) ==
LOC: LABWHC1 11:40
PROVIDERS: ATTEND Family Medicine
DX: Z00.00 Encounter for general adult medical examination without abnormal findings (principal)
CPT/HCPCS: 36415; 80053; 80061; 82306; 84443; 85025